=== PATIENT | male | born 1970 | race African-American/Black ===

== ENCOUNTER 2021-11-18 13:29 | Emergency (ER) | payer OTHER ==
[~2021-11-18] VITALS: Ht 182.9 cm; Wt 87.0 kg
== END 2021-11-18 15:00 ==
LOC: ER 13:29
DX: S30.1XXA Contusion of abdominal wall, initial encounter (principal); X58.XXXA Exposure to other specified factors, initial encounter; Y93.89 Activity, other specified; Y92.89 Other specified places as the place of occurrence of the external cause; Y99.8 Other external cause status
CPT/HCPCS: 99283